=== PATIENT | male | born 1995 | race Two or more races ===

== ENCOUNTER 2017-06-28 09:52 | Emergency (ER) | payer OTHER ==
[~2017-06-28] VITALS: Ht 170.2 cm; Wt 63.5 kg
[2017-06-28 10:06] VITALS: BP 134/82
[2017-06-28] MEDS ORDERED: SODIUM CHLORIDE 0.9% 1,000 ML IV ONE (10:24)
[2017-06-28] MEDS ORDERED: ONDANSETRON HCL 4 MG/2 ML VIAL IV ONE (10:30)
[2017-06-28 10:43] LABS: Basophils # (auto) 0 uL; Basophils % (auto) 0.2 % (0.0-2.0); Eosinophils # (auto) 0 uL; Eosinophils % (auto) 0.1 % (0.0-7.0); Hematocrit 51.7 % (41.0-53.0); Hemoglobin 17.5 g/dL (13.5-17.5); Lymphocytes # (auto) 0.7 uL; Lymphocytes % (auto) 3.7 % (10.0-50.0); Mean Corpuscular Hemoglobin 30.3 pg (28.0-32.0); Mean Corpuscular Hgb Conc. 33.8 g/dL (32.0-36.0); Mean Corpuscular Volume 89.6 fL (80.0-100.0); Monocytes # (auto) 1.1 uL; Monocytes % (auto) 5.8 % (0.0-12.0); Neutrophils # (auto) 16.5 uL; Neutrophils % (auto) 90.2 % (37.0-80.0); Platelet Count (auto) 363 10^3/uL (140-450); Red Blood Cells 5.77 10^6/uL (4.5-5.90); Red Cell Distribution Width 12.7 % (11.8-14.3); White Blood Cell 18.3 10^3/uL (4.4-10.8)
[2017-06-28 11:08] LABS: Albumin 4.7 g/dL (3.4-5.0); BUN/Creatinine Ratio 13.3; Bilirubin, Total 0.4 mg/dL (0.2-1.0); Calcium 8.9 mg/dL (8.5-10.1); Magnesium 2.1 mg/dL (1.6-2.6); Potassium 4.3 mmol/L (3.5-5.1); Total Protein 8.5 g/dL (6.4-8.2)
== END 2017-06-28 13:37 | disposition home or self-care (01) ==
LOC: ER 09:52 → EDBD 09:52 → ER 13:37
DX: K52.9 Noninfective gastroenteritis and colitis, unspecified (principal); K59.00 Constipation, unspecified
CPT/HCPCS: 36415; 74176; 80053; 82150; 83690; 83735; 85025; 93005; 96374; 99285; J2405; J7030

== ENCOUNTER 2020-08-09 11:15 | Emergency (ER) | payer MEDICAID, OTHER ==
[~2020-08-09] VITALS: Ht 172.7 cm; Wt 61.2 kg
[2020-08-09] MEDS ORDERED: HYDROcodone-ACET 7.5/325MG TAB PO ONE (14:15)
[2020-08-09 21:04] VITALS: BP 115/63
== END 2020-08-09 21:33 | disposition home or self-care (01) ==
LOC: ER 11:15 → EDBD 11:15 → ER 21:33
DX: S09.8XXA Other specified injuries of head, initial encounter (principal); Y08.89XA Assault by other specified means, initial encounter; Y93.89 Activity, other specified; Y92.89 Other specified places as the place of occurrence of the external cause; Y99.8 Other external cause status
CPT/HCPCS: 70450; 70486; 73080